=== PATIENT | male | born 1960 | race Hispanic/Latino ===

== ENCOUNTER 2020-10-13 10:10 | Inpatient (IN) | payer OTHER, MEDICARE ==
[2020-10-13] VITALS (22 sets, daily range): BP systolic 155–182; BP diastolic 80–100
[~2020-10-13] VITALS: Ht 180.3 cm; Wt 84.4 kg
[2020-10-13 10:44] LABS: BASOPHILS % (AUTO) 1.8 % (0.0-5.0); HEMATOCRIT 34.9 % (42-54); LYMPHOCYTES % (AUTO) 11.7 % (21.0-51.0); MEAN CORPUSCULAR HEMOGLOBIN 31.8 pg (27.0-33.0); MEAN CORPUSCULAR HGB CONC 33.2 g/dL (32.0-36.0); MEAN CORPUSCULAR VOLUME 95.6 fL (79-99); MONOCYTES % (AUTO) 13.4 % (3.0-13.0); PLATELET COUNT (AUTO) 200 K/uL (130-400); RED BLOOD CELL COUNT(AUTO) 3.65 MIL/uL (4.50-6.20); RED CELL DISTRIBUTION WIDTH 16.8 % (11.0-15.5); WHITE BLOOD COUNT (AUTO) 7.1 K/uL (4.8-10.8)
[2020-10-13 11:13] LABS: B-TYPE NATRIURETIC PEPTIDE 3790 pg/mL (0-100)
[2020-10-13 12:08] LABS: ALBUMIN 3.4 g/dL (3.5-5.0); BILIRUBIN,TOTAL 0.9 mg/dL (0.2-1.0); CREATININE 5.9 mg/dL (0.5-1.5); POTASSIUM 5.3 mmol/L (3.5-5.1); TOTAL PROTEIN, SERUM 6.7 g/dL (6.0-8.3)
[2020-10-13] MEDS ORDERED: HYDROCODONE/ACETAMINOPHEN 5/325 MG TAB PO ONE (13:00)
[2020-10-13 13:01] LABS: INR 1.1 (0.85-1.15); PROTHROMBIN TIME 11.9 SEC (9.6-11.6)
[2020-10-13 13:02] LABS: PARTIAL THROMBOPLASTIN TIME 29.3 SEC (26.3-35.5)
[2020-10-13 14:44] LABS: APPEARANCE,URINE Clear (CLEAR); BILIRUBIN,URINE Negative (NEGATIVE); COLOR,URINE Yellow (YELLOW); GLUCOSE, URINE (UA) 250 mg/dL (NEGATIVE); KETONES,URINE Trace mg/dL (NEGATIVE); LEUKOCYTE ESTERASE ,URINE Negative (NEGATIVE); NITRATE,URINE Negative (NEGATIVE); OCCULT BLOOD,URINE Small (NEGATIVE); PH,URINE 7.5 (5.0-8.0); PROTEIN,URINE >=1000 mg/dL (NEGATIVE)
[2020-10-13 14:55] LABS: BACTERIA,URINE Rare /HPF (None Seen); HYALINE CASTS, URINE 0-1 /LPF (0-1 /LPF); SQUAMOUS EPITHELIAL CELL,UR Rare /HPF (0-2); WBC,URINE 0-1 /HPF (0-1)
[2020-10-13] MEDS ORDERED: ACETAMINOPHEN 325 MG TAB PO PRN (15:30)
[2020-10-13] MEDS ORDERED: ONDANSETRON 4MG INJ IVP PRN (15:30)
[2020-10-13] MEDS ORDERED: 0.9%NACL 1000ML 1,000 ML IV PRN (21:30)
[2020-10-13] MEDS ORDERED: 0.9%NACL 1000ML 1,000 ML IV ONE (21:30)
[2020-10-14] VITALS (7 sets, daily range): BP systolic 144–188; BP diastolic 72–97
[2020-10-14] MEDS: TRAMADOL HCL 50 MG TABLET PO PRN ×2 (01:37→17:50)
[2020-10-14 06:24] LABS: HEMATOCRIT 36.5 % (42-54); MEAN CORPUSCULAR HEMOGLOBIN 31.3 pg (27.0-33.0); MEAN CORPUSCULAR HGB CONC 32.9 g/dL (32.0-36.0); MEAN CORPUSCULAR VOLUME 95.1 fL (79-99); RED BLOOD CELL COUNT(AUTO) 3.84 MIL/uL (4.50-6.20); RED CELL DISTRIBUTION WIDTH 16.3 % (11.0-15.5); WHITE BLOOD COUNT (AUTO) 6.6 K/uL (4.8-10.8)
[2020-10-14 07:03] LABS: ALBUMIN 3.3 g/dL (3.5-5.0); BILIRUBIN,TOTAL 0.8 mg/dL (0.2-1.0); POTASSIUM 4.7 mmol/L (3.5-5.1); THYROID STIMULATING HORMONE 16.65 uIU/mL (0.36-3.74); TOTAL PROTEIN, SERUM 6.5 g/dL (6.0-8.3)
[2020-10-14] MEDS ORDERED: ENOXAPARIN SODIUM 30 MG/0.3 ML SQ SCH (09:00)
[2020-10-14] MEDS ORDERED: AMLO-258 PO (09:10)
[2020-10-14] MEDS ORDERED: CARV25TA PO (09:10)
[2020-10-14] MEDS ORDERED: CARVEDILOL 25 MG TABLET PO ONE (10:13)
[2020-10-14] MEDS ORDERED: AMLODIPINE 5 MG TAB ONE (10:13)
[2020-10-14] MEDS: PANTOPRAZOLE 40 MG/VIAL IVP SCH (10:24)
[2020-10-14] MEDS: CARVEDILOL 25 MG TABLET PO SCH ×2 (10:32→20:43)
[2020-10-14] MEDS ORDERED: INSULIN HUMULIN R 100 UNIT/ML 3ML SQ SCH (21:00)
[2020-10-14] MEDS ORDERED: DEXTROSE 50%-WATER 50 ML DISP.SYRIN IV PRN (21:00)
[2020-10-14] MEDS ORDERED: GLUCAGON 1MG KIT 1 MG ML IM PRN (21:00)
[2020-10-15] VITALS (18 sets, daily range): BP systolic 147–175; BP diastolic 72–101
[2020-10-15 04:00] LABS: HEMATOCRIT 39.8 % (42-54); MEAN CORPUSCULAR HEMOGLOBIN 31.4 pg (27.0-33.0); MEAN CORPUSCULAR HGB CONC 32.2 g/dL (32.0-36.0); MEAN CORPUSCULAR VOLUME 97.8 fL (79-99); RED BLOOD CELL COUNT(AUTO) 4.07 MIL/uL (4.50-6.20); RED CELL DISTRIBUTION WIDTH 16.5 % (11.0-15.5); WHITE BLOOD COUNT (AUTO) 7.2 K/uL (4.8-10.8)
[2020-10-15 04:16] LABS: INR 1.1 (0.85-1.15); PROTHROMBIN TIME 11.9 SEC (9.6-11.6)
[2020-10-15 04:17] LABS: PARTIAL THROMBOPLASTIN TIME 29.6 SEC (26.3-35.5)
[2020-10-15 04:20] LABS: ALBUMIN 3.5 g/dL (3.5-5.0); BILIRUBIN,TOTAL 0.7 mg/dL (0.2-1.0); CREATININE 6.1 mg/dL (0.5-1.5); MAGNESIUM 2.4 mg/dL (1.80-2.40); POTASSIUM 4.4 mmol/L (3.5-5.1); TOTAL PROTEIN, SERUM 6.9 g/dL (6.0-8.3)
[2020-10-15 07:16] LABS: HEPATITIS Bs ANTIGEN SCREEN P Negative (Negative)
[2020-10-15] MEDS ORDERED: AMLODIPINE 5 MG TAB PO SCH (09:00)
[2020-10-15] MEDS: PANTOPRAZOLE 40 MG/VIAL IVP SCH (09:33)
[2020-10-15] MEDS: CARVEDILOL 25 MG TABLET PO SCH (09:34)
[2020-10-15] MEDS: TRAMADOL HCL 50 MG TABLET PO PRN (17:50)
== END 2020-10-15 18:50 | disposition left against medical advice (07) | DRG 640 ==
LOC: EDH 10:10 → EDHIP 12:18 → 4DH 10-14 00:40
PROVIDERS: ADMIT Internal Medicine Nephrology; ATTEND Internal Medicine Nephrology
PROC: 5A1D70Z Performance of Urinary Filtration, Intermittent, Less than 6 Hours Per Day (ICD-10-PCS; principal; 2020-10-13)
PROC: 5A1D70Z Performance of Urinary Filtration, Intermittent, Less than 6 Hours Per Day (ICD-10-PCS; 2020-10-15)
DX: E87.70 Fluid overload, unspecified (principal); N18.6 End stage renal disease; S52.502A Unspecified fracture of the lower end of left radius, initial encounter for closed fracture; I31.3 Pericardial effusion (noninflammatory); I13.11 Hypertensive heart and chronic kidney disease without heart failure, with stage 5 chronic kidney disease, or end stage renal disease; E87.5 Hyperkalemia; N50.89 Other specified disorders of the male genital organs; E11.22 Type 2 diabetes mellitus with diabetic chronic kidney disease; E78.5 Hyperlipidemia, unspecified; E83.39 Other disorders of phosphorus metabolism; D64.9 Anemia, unspecified; Z20.822 Contact with and (suspected) exposure to COVID-19; R14.0 Abdominal distension (gaseous); Z91.19 Patient's noncompliance with other medical treatment and regimen; Z59.0 Homelessness; Z99.2 Dependence on renal dialysis; Y93.89 Activity, other specified; Y92.89 Other specified places as the place of occurrence of the external cause; Y99.8 Other external cause status; Z91.15 Patient's noncompliance with renal dialysis; Z91.11 Patient's noncompliance with dietary regimen
CPT/HCPCS: 36415; 70450; 71045; 73090; 73110; 80053; 81001; 82550; 82947; 82948; 83605; 83735; 83874; 83880; 84100; 84145; 84443; 84484; 85025; 85027; 85610; 85730; 86704; 86706; 87340; 87635; 90935; 93005; 93306; 93356; C9113; C9803; G0378; J1650; J7030; J7070

== ENCOUNTER 2022-01-22 17:42 | Emergency (ER) | payer OTHER, MEDICARE ==
[~2022-01-22] VITALS: Ht 180.3 cm; Wt 86.2 kg
[~2022-01-22 17:42] MED LIST: AMLO-258 PO; CARV25TA PO
[2022-01-22] MEDS ORDERED: ACETAMINOPHEN WITH CODEINE 1 TAB TAB PO ONE (19:00)
[2022-01-22 20:55] VITALS: BP 135/69
== END 2022-01-22 21:39 | disposition home or self-care (01) ==
LOC: EDH 17:42
DX: I77.0 Arteriovenous fistula, acquired (principal); M79.602 Pain in left arm; I12.9 Hypertensive chronic kidney disease with stage 1 through stage 4 chronic kidney disease, or unspecified chronic kidney disease; E11.22 Type 2 diabetes mellitus with diabetic chronic kidney disease; N18.9 Chronic kidney disease, unspecified; Z98.890 Other specified postprocedural states
CPT/HCPCS: 93990

== ENCOUNTER → 2022-08-05 | Outpatient (CLI) | payer OTHER, MEDICARE ==
[~2022-08-05] MED LIST changes: +ALBUMIN (HUMAN) 25% 200 ML IV SCH
[2022-08-05 14:28] LABS: APPEARANCE BODY FLUID SLIGHTLY CLOUDY (CLEAR); COLOR,BODY FLUID YELLOW (LT YELLOW); SPECIMENTYPE,BODY FLUID ASCITES; TOTAL VOLUME,BODY FLUID 6000 mL
[2022-08-05 14:37] LABS: BODY FLUID RBC 415 /cu. mm.; BODY FLUID WBC 294 /cu. mm.
[2022-08-05 15:59] LABS: BF LYMPHOCYTE 18 %; BF MESOTHELIAL 9 %; BF OTHER CELLS 1
== END | disposition home or self-care (01) ==
LOC: RAH 10:15
PROVIDERS: ATTEND Family Medicine
DX: R18.8 Other ascites (principal); E11.22 Type 2 diabetes mellitus with diabetic chronic kidney disease; I12.9 Hypertensive chronic kidney disease with stage 1 through stage 4 chronic kidney disease, or unspecified chronic kidney disease; N18.9 Chronic kidney disease, unspecified; Z79.01 Long term (current) use of anticoagulants; Z79.899 Other long term (current) drug therapy
CPT/HCPCS: 49083; 89051; 87071; 87205; P9046; C1729